=== PATIENT | female | born 1980 | race Caucasian/White ===

== ENCOUNTER 2023-04-02 14:20 | Emergency (ER) | payer BC ==
[~2023-04-02] VITALS: Ht 152.4 cm; Wt 66.7 kg
[2023-04-02] MEDS ORDERED: ADENOSINE 6 MG/2 ML SYR IV ONE ×3 (14:33→14:45)
[2023-04-02] MEDS ORDERED: MAGNESIUM SULFATE/D5W 200 ML ONE (14:40)
[2023-04-02] MEDS ORDERED: LORAZEPAM 2 MG/1 ML VIAL ONE (14:56)
[2023-04-02] MEDS ORDERED: METOPROLOL TARTRATE 50 MG TABLET ONE (14:57)
[2023-04-02] MEDS ORDERED: LORAZEPAM 2 MG/1 ML VIAL IV ONE (15:00)
[2023-04-02] MEDS ORDERED: METOPROLOL TARTRATE 50 MG TABLET PO ONE (15:00)
[2023-04-02 15:04] LABS: BASOPHILS % (AUTO) 0.2 % (0.0-2.0); HEMATOCRIT 37.9 % (31.2-41.9); HEMOGLOBIN 12.7 g/dL (10.9-14.3); LYMPHOCYTES # (AUTO) 0.7 K/uL (0.8-4.8); LYMPHOCYTES % (AUTO) 16.2 % (20.5-51.5); MEAN CORPUSCULAR HEMOGLOBIN 28.6 uug (24.7-32.8); MEAN CORPUSCULAR HGB CONC 34 g/dL (32.3-35.6); MEAN CORPUSCULAR VOLUME 85.2 fL (75.5-95.3); MONOCYTES # (AUTO) 0.4 K/uL (0.1-1.30); MONOCYTES % (AUTO) 7.9 % (0.0-11.0); NEUTROPHILS # (AUTO) 3.3 K/uL (1.8-8.9); NEUTROPHILS % (AUTO) 74.7 % (38.5-71.5); PLATELET COUNT (AUTO) 221 K/uL (179-408); RED BLOOD CELL COUNT(AUTO) 4.45 MIL/uL (3.63-4.92); RED CELL DISTRIBUTION WIDTH 13.3 % (12.3-17.7); WHITE BLOOD COUNT (AUTO) 4.5 K/uL (3.8-11.8)
[2023-04-02 15:05] LABS: DIFFERENTIAL COMMENT 1
[2023-04-02 15:07] LABS: CALCIUM 8.3 mg/dL (8.5-10.1); CARBON DIOXIDE 22 mmol/L (21-32); CHLORIDE 102 mmol/L (98-107); CREATININE 0.7 mg/dL (0.6-1.3); GLUCOSE 153 mg/dL (74-106); POTASSIUM 3.7 mmol/L (3.5-5.1); SODIUM SERUM 137 mmol/L (136-145); UREA NITROGEN, BLOOD 11 mg/dL (7-18)
[2023-04-02] MEDS: MAGNESIUM SULFATE/D5W 100 ML IV SCH ×2 (15:14→15:44)
[2023-04-02 15:20] LABS: THYROID STIMULATING HORMONE 1.235 mIU/mL (0.358-3.740)
[2023-04-02 15:21] LABS: ALANINE AMINOTRANSFERASE 28 U/L (14-59); ALBUMIN 3.4 g/dL (3.4-5.0); ALKALINE PHOSPHATASE 59 U/L (50-136); ASPARTATE AMINOTRANSFERASE 21 U/L (15-37); BILIRUBIN,TOTAL 0.4 mg/dL (0.2-1.0); NT-PRO BNP 107 pg/mL (0-125); TOTAL PROTEIN, SERUM 7.3 g/dL (6.4-8.2)
[2023-04-02 15:23] LABS: BILIRUBIN,DIRECT < 0.1 mg/dL (0.0-0.2)
[2023-04-02] MEDS ORDERED: METO25TA6 PO (17:13)
[2023-04-02] MEDS ORDERED: LORA0.5T48 PO (17:13)
[2023-04-02] MEDS ORDERED: MAGN64TA9 PO (17:13)
[2023-04-02 17:37] VITALS: BP 127/77; TEMP 98.3; O2SAT 98
[2023-04-02 17:39] LABS: *BILIRUBIN,URIN NEGATIVE (NEGATIVE); *BLOOD, URINE 1+ (NEGATIVE); *CLARITY,URINE CLEAR (CLEAR); *COLOR,URINE YELLOW (YELLOW); *KETONES,URINE NEGATIVE (NEGATIVE); *PROTEIN,URINE NEGATIVE (NEGATIVE); *UROBILINOGEN,URINE 0.2 E.U./dl (NORMAL); LEUKOCYTE ESTERASE ,URINE NEGATIVE (NEGATIVE); NITRITE, URINE NEGATIVE (NEGATIVE); PH,URINE 6.5 (5.0-8.0); UGLUCOSE NEGATIVE (NEGATIVE)
[2023-04-02 18:06] LABS: BACTERIA,URINE FEW /HPF (NONE SEEN); SQUAMOUS EPITHELIAL CELL,UR FEW /HPF (NONE SEEN); WBC,URINE 0-3 /HPF (0-3)
== END 2023-04-02 17:38 | disposition home or self-care (01) ==
LOC: ER 14:23
DX: I47.10 Supraventricular tachycardia, unspecified (principal); R07.89 Other chest pain; Z79.899 Other long term (current) drug therapy
CPT/HCPCS: 99291; 96365; 96366; 96375; 80076; 80048; 81001; 83880; 83735; 84443; 85025; 85730; 84484; 36415; 93005; 71045; J0153; J2060; J3475; A4606; A4663